=== PATIENT | female | born 1990 | race Caucasian/White ===

== ENCOUNTER 2021-02-07 19:32 | Outpatient (CLI) | payer SELFPAY ==
[~2021-02-07] VITALS: Ht 152.4 cm; Wt 78.1 kg
[2021-02-07 20:15] VITALS: BP 130/72
[2021-02-07 20:44] LABS: APPEARANCE, URINE HAZY (CLEAR); BACTERIA, URINE AUTO NEGATIVE (NEGATIVE); BILIRUBIN, URINE AUTO NEGATIVE (NEGATIVE); BLOOD, URINE BLOOD 2+ (NEGATIVE); COLOR, URINE YELLOW (YELLOW); GLUCOSE, URINE (UA) AUTO NEGATIVE (NEGATIVE); KETONE, URINE AUTO NEGATIVE (NEGATIVE); LEUKOCYTE ESTERASE, URINE AUTO NEGATIVE (NEGATIVE); MUCUS, URINE SMALL (NEGATIVE); NITRITE, URINE AUTO NEGATIVE (NEGATIVE); PROTEIN, URINE AUTO NEGATIVE (NEGATIVE); RBC, URINE AUTO TNTC /HPF (0-3); SPECIFIC GRAVITY URINE AUTO 1.014 (1.002-1.035); SQUAMOUS EPITHELIAL CELL UR AU 4 /HPF (0-6); UROBILINOGEN, URINE AUTO 0.2 mg/dL (0.0-2.0); WBC, URINE AUTO 1 /HPF (0-3)
[2021-02-07 20:45] VITALS: BP 128/69
--- NOTE | 2021-02-07 20:54 | IPNPDOC ---
Text Note Date of Service The patient was seen on 02/07/21. NOTE 31 yo at 32+4 weeks gestation presented to L&D with the complaint of several hours of severe pelvic pressure and "cervical pain." She reports the pain is 8/10 and fairly constant. She denies any urinary symptoms. She denies any vaginal bleeding, discrete contractions, or leakage of fluid. She endorses regular movement. She had intercourse yesterday. Chaperoned by L&D RN Vitals - VSS, afebrile, normotensive, non tachycardic General - AAOX3, sitting up in bed, pleasant and conversant, NAD Abdomen - Gravid uterus. No fundal tenderness Pelvic - Normal external female genitalia. Speculum inserted into the vagina and the cervix was visualized. Cervix normal in appearance and without lesions. No blood or discharge in the vaginal vault. Cervix closed. Speculum removed. Digital exam confirmed cervix cl/thick/high, posterior. FHR tracing - Cat I with +accels, no decels. No ctx on toco. Bedside TVUS: Cervical length >3.5cm with no funneling or dynamic changes. Labs: UA - unremarkable No evidence of labor or infection. Cervix closed, thick, high. Cervical length reassuring. No ctx on toco. No evidence of UTI on UA. Will follow up on UC and contact patient directly if abnormal. Discharged with return precautions. All questions answered. 40 minutes Jeremie River, I+O Jeremie PHILLIPS, I+O Vital Signs Date Time Temp Pulse Resp B/P (MAP) Pulse Ox O2 Delivery O2 Flow Rate FiO2 02/07/21 20:01 97.8 76 16 Room Air ROMELIA TARIQ DO Feb 07, 2021 20:54
[2021-02-07] MEDS ORDERED: PRENTAB9 PO (21:02)
[2021-02-07] MEDS ORDERED: ASPI81CH33 PO (21:03)
== END 2021-02-07 20:52 | disposition home or self-care (01) ==
LOC: M LDO 19:32
PROVIDERS: ATTEND Obstetrics & Gynecology
DX: O26.893 Other specified pregnancy related conditions, third trimester (principal); R10.2 Pelvic and perineal pain; Z3A.32 32 weeks gestation of pregnancy
CPT/HCPCS: 59025; 81001; 87086; G0378; G0463

== ENCOUNTER 2021-03-25 17:09 | Inpatient (IN) | payer OTHER, SELFPAY ==
[~2021-03-25] VITALS: Ht 170.2 cm; Wt 79.9 kg
[~2021-03-25 17:09] MED LIST: ASPI81CH33 PO; PRENTAB9 PO
[2021-03-25] MEDS ORDERED: VITATAB47 PO (17:32)
[2021-03-25 17:53] VITALS: BP 121/80
[2021-03-25 18:16] LABS: HEMATOCRIT 35.8 % (36.0-47.0); HEMOGLOBIN 12.3 g/dl (12.0-15.5); MEAN CORPUSCULAR HEMOGLOBIN 29.6 pg (27.0-33.0); MEAN CORPUSCULAR HGB CONC 34.4 g/dl (32.0-36.5); MEAN CORPUSCULAR VOLUME 86.1 fl (80.0-96.0); PLATELET COUNT, AUTOMATED 242 10^3/uL (150-450); RED BLOOD COUNT 4.16 10^6/uL (4.00-5.40)
[2021-03-25] MEDS ORDERED: TUMS500C PO (19:56)
[2021-03-25] MEDS ORDERED: HOME MED LIST COMPLETE! XX SCH (20:00)
[2021-03-25] MEDS ORDERED: PENICILLIN G POTASSIUM IV 5 MU in D5W MINI-BAG PLUS 100 ML IV STA (20:37)
[2021-03-25] MEDS ORDERED: METHYLERGONOVINE MALEATE 0.2 MG/ML VIAL (J2210) IM PRN (20:40)
[2021-03-25] MEDS ORDERED: OXYTOCIN INJ 10 UNITS/ML VIAL (J2590) IV PRN (20:40)
[2021-03-25] MEDS ORDERED: OXYTOCIN DRIP 30 UNITS in IV 1 EA IV SCH (20:40)
[2021-03-25] MEDS ORDERED: LR 1,000 ML IV SCH (20:40)
[2021-03-25] MEDS ORDERED: OXYTOCIN DRIP 30 UNITS in IV 1 EA IV PRN (20:40)
[2021-03-25] MEDS: LACTATED RINGER'S 1000 ML IV ONE (21:06)
--- NOTE | 2021-03-25 21:23 | HPEPDOC ---
Obstetrical History & Physical General Date of Admission Vital Signs Label Value Date Time Patient Temperature 98.2 degrees F 03/25/21 1753 Pulse 85 03/25/21 175 Respiratory Rate 16 bpm 03/25/21 175 Blood Pressure Assessment 121/80 (94) 03/25/21 175 Source Automatic Cuff (NIBP) Item Value Date Time White Blood Count 11.0 10^3/uL H 03/25/21 1755 Red Blood Count 4.16 10^6/uL 03/25/21 1755 Hemoglobin 12.3 g/dl 03/25/21 1755 Hematocrit 35.8 % L 03/25/21 1755 Mean Corpuscular Volume 86.1 fl 03/25/21 175 Mean Corpuscular Hemoglobin 29.6 pg 03/25/21 175 Mean Corpuscular Hemoglobin Concent 34.4 g/dl 03/25/21 175 Red Cell Distribution Width 12.7 % 03/25/21 175 Platelet Count 242 10^3/uL 03/25/21 1755 Mar 25, 2021 at 17:09 Primary Care Physician: Rashaad Hughes MD History of Present Illness 03/25/21 HX PRE E BOOKED FOR IOL AT 39 WEEKS Chief Complaint: Induction of labor Information Provided By: Patient Age: 30 : 2 Term: 0 Pre-term: 1 Abortions: 0 Livin Care Care: Good Care Number of Visits: 10 Dating Final EDC: Mar 31, 2021 Final EDC for Daily Update: Mar 31, 2021 Final EDC by: LMP LMP: Jun 24, 2020 1st Trimester Date: Aug 28, 2020 Weeks + Days: 9.0 Estimated Date of Confinement: Mar 31, 2021 EGA at Admission: 39.1 Antepartum Course Diagnos(e)s HISTORY PRE E BOOKED IOL AT 39.1 WEEKS Height (inches): 67 Pre- weight (lbs.): 142 Admission Weight (lbs.): 177 Change in Weight (lbs.): 35 Past Medical History Past Obstetrical History : Past Obstetrical History: Multigravida Date of Delivery: Jul 18, 2019 Gestation: 36 Type of Delivery: Spontaneous Vaginal Del. Sex of Infant: Male Weight of Infant (grams): 3288 Complications: Yes (SEVERE PRE -E ) APPEALS OFFICER History: Abnormal Pap (RETINAL DETATCHMENT) Past Medical History Medical History RETINAL DETACHMENT Surgical History: Other (LEEP CONE CERVIX, LASAR TO EYE SCLERAL BUCKLE) Family History Significant Family History: Hypertension (TYPE 2 DIABETES, PANCREATIC CANCER, PROSTATE CANCER SICK SINUS SYNDROME STROKE ) Family History MOTHER SICK SINUS SYNDROME WITH PACE MAKER, STROKE,HTN, TYPE 2 DIABETES FATHER TYPE 2 DIABETES,HTN,PROSTATE CANCER MGM PANCREATIC CANCER, HTN TYPE 2 DIABETES PGM HTN Social History Social history TO AD GOOD SUPPORT Marital Status: Family situation: Spouse/partner home Psychosocial History: No pertinent psych hx * Smoker: non-smoker Alcohol: Denies Drugs: denies Abuse Violence Screening Have you been hit/kicked/slapp: No Have you been sexually assault: No Imunizations Tdap status: current Influenza Status: current Allergies Coded Allergies: No Known Allergies (Unverified , 03/25/21) Medications Scheduled Aspirin (Aspirin) 81 Mg Tab.chew, 81 MG PO DAILY for pain B Cmplx 4/Vit D3/C/Folic/Zinc (Vital-D Rx Tablet) 1 Each Tablet, 1 TAB PO DAILY No.137/Iron/Folic Acd ( Vitamin Tablet) 1 Each Tablet, 1 TAB PO DAILY Scheduled PRN Calcium Carbonate (Tums) 200 Mg Tab.chew, 1,000 MG PO Q4-6HP PRN for HEARTBURN Physical Examination Physical Examination GENERAL: Alert and oriented times three. BREAST: . ABDOMEN: Gravid and non-tender to touch. FETUS: Is vertex (VTX) by sterile vaginal examination (SVE), fetus is vertex (VTX) by Saul. CERVIX SOFT POSTERIOR STRETCHY 2-3 BULGING MEMBRANES EFFACED 50% -3 STATION HEART RATE: Regular rate and rhythm. LUNGS: Clear to auscultation (CTA). EXTREMITIES: No edema. No clonus. Deep tendon reflexes (DTRs) + . Other physical findings NORMOCEPHALIC ATRAUMATIC NECK SUPPLE PERRLA, CHEST CLEAR TO BASES NO WHEEZE NO RHONCHI, NO SOB HEART NORMAL RHYTHM NO MURMUR NO CLICKS RUBS. ABDOMEN SOFT SF HEIGHT 39 CM 4 QUADRANT BOWEL SOUNDS. NO RASHES LESIONS PRURITUS. 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 NO URGENCY FREQUENCY Laboratory Data 24H LABS Laboratory Tests 2 03/25/21 17:55: Nucleated Red Blood Cells % (auto) 0.0, Syphilis Serology NONREACTIVE CBC/BMP Laboratory Tests 03/25/21 17:55 Pertinent Laboratoy Data Blood Type: A+ RBC Antibody Screen: Negative HIV: Negative Hepatitis B: Negative Rapid Plasma Reagin: Nonreactive Rubella: Immune Varicella: Immune Chlamydia/Gonorrhea: Negative Group B Streptococcus: Positive Quad Screen Test: Unknown Cystic Fibrosis: Negative Anatomy Ultrasound Ultrasound Date: Sep 24, 2020 Placenta Location: Anterior Normal Anatomy: Yes Placenta Previa: No Estimated Weight (grams): 344 Steroid Therapy Steroid Therapy: No Vaginal Examination Dilation: 3 cm Effacement: 50% Station: -3 Cervical Consistency: Soft Cervical Position: Posterior Presentation: Cephalic presentation Assessment Heart Rate (FHR): 144 Variability: Moderate Accelerations: Present Decelerations: None Tocometer Contractions: No Assessment/Plan Assessment 30 -year-old (G)2 para (P)1 at 39.1 weeks by 9-week ultrasound. Presents to Labor and Delivery (L&D) .FOR IOL FOR PRE E Plan Admit and orient. [employer] and consent. Diet: SATINDER Group B Streptococcus (GBS) POSITIVE Labs and intravenous (IV) per unit protocol. Counseled on Pitocin and induction of labor (IOL).COOK'S CATHETER Lactated Ringers (LR): Bolus 1000 mL, then at 125 mL/hr. Anticipate [normal spontaneous delivery ()]. C-S as appropriate. Labor and Delivery Counseling CONSENT VAGINAL DELIVERY WITH POSSIBLE USE OF FORCEPS OR VACUUM FOR MATERNAL OR REASONS WHEN DELIVERY IS NEEDED IMMEDIATELY AND OR MATERNAL DISTRESS FAILURE TO PUSH EFFECTIVELY. E[EPISIOTOMY MAY BE REQUIRED TO ACHIEVE DELIVERY AND REPAIR MAY BE NEEDED FOR LACERATIONS TEARS TO PELVIC ORGANS . EMERGENCY MY BE REQUIRED FOR OR MATERNAL REASONS WHEN IMMANENT DELIVERY IS NEEDED. RISKS INCLUDE HEMORRHAGE INFECTION PERFORATION REOPERATION REMOTE BLOOD TRANSFUSION REMOTE HYSTERECTOMY FOR LIFE THREATENING BLEEDING.POSSIBLE ADMISSION TO NICU . PATIENT MAY HAVE RESIDUAL DULCE FECAL INCONTINENCE UTERINE RUPTURE , EXPRESSED UNDERSTANDING. PLAN IS TO START ANTIBIOTICS CH"S CATHETER AUGMENT WITH PITOCIN AND EPIDURAL NEEDED PASSIVE DESCENT AND MINIMAL PUSHING DUE TO RETINA Rashaad Hughes MD Mar 25, 2021 21:20
[2021-03-25 21:51] VITALS: BP 129/76
[2021-03-25 22:08] VITALS: BP 123/84
[2021-03-25 22:38] VITALS: BP 101/59
[2021-03-25 23:00] VITALS: BP 110/61
[2021-03-25 23:30] VITALS: BP 108/58
[2021-03-26] VITALS (26 sets, daily range): BP systolic 96–130; BP diastolic 50–83
[2021-03-26] MEDS ORDERED: FENTANYL 2MCG/ML ROPIVACAINE 0.2% IN 0.9% NACL 100ML IVBAG As Ordered ONE (00:20)
[2021-03-26] MEDS: LACTATED RINGER'S 1000 ML IV ONE (00:36)
[2021-03-26] MEDS: FENTANYL/ROPIVACAINE/NACL BAG 100 ML EPIDURAL SCH ×2 (00:50→17:27)
[2021-03-26] MEDS ORDERED: PENICILLIN G POTASSIUM IV 2.5 MU in IV 1 EA IV SCH (01:06)
[2021-03-26 04:19] LABS: CORD GAS ABE A -3.5; CORD GAS HCO3 A 22.9 MEQ/L; CORD GAS HCO3 V 19.8 MEQ/L; CORD GAS O2 SAT A 69.4 %; CORD GAS O2 SAT V 70.1 %; CORD GAS PCO2 A 46.1 mmHg; CORD GAS PCO2 V 39.9 mmHg; CORD GAS PH A 7.314 UNITS; CORD GAS PH V 7.313 UNITS; CORD GAS PO2 A 28.2 mmHg; CORD GAS PO2 V 29.7 mmHg; CORD GAS TCO2 A 24.3 MEQ/L
[2021-03-26] MEDS ORDERED: DIBUCAINE 1% OINTMENT 30GM TOP PRN (04:25)
[2021-03-26] MEDS ORDERED: OXYTOCIN DRIP 30 UNITS in IV 1 EA IV SCH (04:25)
[2021-03-26] MEDS ORDERED: ACETAMINOPHEN TAB 650MG DOSE (2X325MG) PO PRN (04:25)
[2021-03-26] MEDS ORDERED: MOM 30ML SUSPENSION UDC PO PRN (04:25)
[2021-03-26] MEDS ORDERED: RHOGAM 300 MCG (1500 IU) INJ (J2790) IM SCH (04:25)
[2021-03-26] MEDS ORDERED: MEASLES,MUMPS,RUBELLA VACCINE INJ (MMR-II) (90707) SC SCH (04:25)
[2021-03-26] MEDS ORDERED: OXYTOCIN INJ 10 UNITS/ML VIAL (J2590) IV ONE (04:25)
[2021-03-26] MEDS ORDERED: METHYLERGONOVINE MALEATE 0.2 MG TAB PO PRN (04:25)
[2021-03-26] MEDS ORDERED: OXYTOCIN DRIP 30 UNITS in IV 1 EA IV ONE (04:25)
[2021-03-26] MEDS ORDERED: METHYLERGONOVINE MALEATE 0.2 MG/ML VIAL (J2210) IM ONE (04:25)
[2021-03-26] MEDS ORDERED: ANUSOL HC CREAM 30GM TOP PRN (04:25)
[2021-03-26] MEDS ORDERED: diphenhydrAMINE 50MG/ML VIAL (J1200) IV PRN (06:05)
[2021-03-26] MEDS ORDERED: ePHEDrine SULFATE 25 MG/5 ML(5MG/ML) SYRINGE IV PRN (06:05)
[2021-03-26] MEDS ORDERED: REFRIGERATOR IV KEYS XX PRN (06:05)
[2021-03-26] MEDS ORDERED: EPIDURAL COMMENT XX SCH (06:05)
[2021-03-26] MEDS ORDERED: EPIDURAL/PCA KEYS XX PRN (06:05)
[2021-03-26] MEDS ORDERED: ONDANSETRON 4MG/2ML VIAL IV PRN (06:05)
[2021-03-26] MEDS ORDERED: NALOXONE INJ 0.4MG/1ML VIAL (J2310 PER 1MG) IV PRN (06:05)
[2021-03-26] MEDS ORDERED: LACTATED RINGER'S 1000 ML IV PRN (06:05)
[2021-03-26] MEDS: LR 1,000 ML IV SCH ×2 (06:55→12:25)
--- NOTE | 2021-03-26 07:35 | DN ---
DELIVERY NOTE DATE OF DELIVERY: 03/26/2021 TIME OF : GENDER: APGARS: LACERATIONS: DESCRIPTION OF DELIVERY: This patient is a 31-year-old 2 para 1 admitted for induction of labor at 39 plus weeks of gestation with a history of preeclampsia (pre-E). she had an epidural in place, had a spontaneous vaginal delivery with brow anterior live- male ; 8 pounds 11 ounces (3950 grams); Apgars of 9 and 9 at one and five minutes respectively. Cord around the neck times one. Arterial pH 7.31, base excess -3.5. Venous PH 7.31, base excess -6.0. Placenta delivered spontaneously thereafter; three-vessel cord; membranes and tissues intact. Anterior, posterior and lateral bang complete, quite a bit of bruising in the fourchette area and the lateral wall. Sphincter was tight. Uterus was a bit boggy; required increased Pitocin and Methergine and massage because of prolonged pushing; however, the uterus did come down and contract appropriately. The estimated blood loss was 200 mL. The patient and baby tolerated the procedure well. [facility]
[2021-03-26] MEDS: DOCUSATE SODIUM 100MG CAPSULE PO PRN (08:02)
[2021-03-26] MEDS: PRENATAL VITAMINS CHEWABLE TABLET PO SCH (08:02)
[2021-03-26] MEDS: IBUPROFEN 600MG TAB PO PRN ×3 (08:02→21:30)
[2021-03-26] MEDS ORDERED: SERTRALINE HCL 50 MG TAB PO SCH (09:00)
[2021-03-26] MEDS: ACETAMINOPHEN 500 MG TAB PO PRN ×2 (11:48→19:32)
[2021-03-26] MEDS: MIRALAX *UNIT DOSE* 17GM PACKET PO PRN (21:30)
[2021-03-26] MEDS: SERTRALINE HCL 50 MG TAB PO SCH (21:30)
[2021-03-27] MEDS: ACETAMINOPHEN 500 MG TAB PO PRN ×3 (02:44→22:27)
[2021-03-27] MEDS: FENTANYL/ROPIVACAINE/NACL BAG 100 ML EPIDURAL SCH (04:49)
[2021-03-27] MEDS: IBUPROFEN 600MG TAB PO PRN ×3 (05:16→22:25)
--- NOTE | 2021-03-27 05:25 | IPNPDOC ---
Progress Note Date of Service: Mar 27, 2021 Progress Note 31 yo G2 now P2 PPD#1 s/p uncomplicated yesterday in the education technician hours after being admitted for an IOL. No acute events overnight. This morning Lizbet overally reports feeling well. She does endorse rectal pressure and bruising and desires an exam in this location. She is ambulating, voiding without difficulty, and tolerating a regular diet. Lochia has been minimal. She is Chaperoned by Maternity nursing staff Vitals - VSS, afebrile, normotensive, non tachycardic General - AAOX3, laying in bed, pleasant and conversant, NAD Abdomen - Soft, nondistended. Fundus firm at U-2. No fundal tenderness. Perineum/rectum - bruising noted around anus and perineum. No hematoma. No signs of infection or skin breakdown Extremities - trace edema UO - appropriate Lizbet is doing well and is making an appropriate recovery. Perineal / anal bruising noted but not hematoma or skin breakdown. Continue to monitor. Continue routine care. Anticipate DC home tomorrow. All questions answered. Jovani VS, I&O, 24H, Jeremie Vital Signs/I&O Vital Signs Date Time Temp Pulse Resp B/P (MAP) Pulse Ox O2 Delivery O2 Flow Rate FiO2 03/26/21 18:00 97.2 69 18 111/67 (82) Room Air I&O- Last 24 Hours up to 6 AM 03/27/21 06:00 Intake Total 1527.5 ml Output Total 400 ml Balance 1127.5 ml Laboratory Data 24H LABS Laboratory Tests 2 03/26/21 06:50: Serology Scanned Report Hepatitis B Testing ROMELIA TARIQ DO Mar 27, 2021 05:25
[2021-03-27 06:05] VITALS: BP 130/77
[2021-03-27] MEDS: DOCUSATE SODIUM 100MG CAPSULE PO PRN ×2 (08:41→21:30)
[2021-03-27] MEDS: PRENATAL VITAMINS CHEWABLE TABLET PO SCH (08:41)
[2021-03-27 18:00] VITALS: BP 112/56
[2021-03-27] MEDS: SERTRALINE HCL 50 MG TAB PO SCH (21:29)
[2021-03-27] MEDS: MIRALAX *UNIT DOSE* 17GM PACKET PO PRN (22:28)
[2021-03-28] MEDS ORDERED: SERT50TA29 PO (04:57)
[2021-03-28] MEDS ORDERED: ACET1TAB55 PO (04:57)
[2021-03-28] MEDS ORDERED: COLA100C5 PO (04:57)
[2021-03-28] MEDS ORDERED: IBUP-1022 PO (04:57)
--- NOTE | 2021-03-28 05:12 | OBDS ---
[facility] Obstetrical Discharge Sum. Obstetrical Discharge Summary Barrel Plater/Provider: YOBANY CHAMBERS DO Date: Mar 28, 2021 Time: 04:49 : 2 Term: 2 Pre-term: 0 Abortions: 0 Livin VDRL: Non-Reactive Rh: Positive Rubella: Immune Labor uncomplicated induction of labor Delivery normal spontaneous vaginal delivery Sex: Male Weight: pounds (8), ounces (11) Anesthesia: Regional Anesthesia A/P, Post Course List any complications Admission diagnosis: term gestation. Discharge diagnosis: status post normal spontaneous vaginal delivery Condition at Discharge: Good Discharge Instructions: Home Activity: vaginal rest Diet: resume prehospital Medications: picked up Follow-up: 6 weeks [facility] Other: Day of discharge exam: nad, a&o x3 cv regular rate nonlabored breathing abd soft nontender, nondistended uterus firm at u-2 negative calf tenderness bilaterally YOBANY CHAMBERS DO Mar 28, 2021 04:51
[2021-03-28 05:50] VITALS: BP 119/73
[2021-03-28 07:45] VITALS: BP 119/73
[2021-03-28] MEDS: PRENATAL VITAMINS CHEWABLE TABLET PO SCH (08:59)
[2021-03-28] MEDS: DOCUSATE SODIUM 100MG CAPSULE PO PRN (08:59)
[2021-03-28] MEDS: ACETAMINOPHEN 500 MG TAB PO PRN (08:59)
--- NOTE | 2021-03-29 12:14 | IPN ---
PROGRESS NOTE DATE: 03/26/2021 SUBJECTIVE: This patient requested circumcision of her male infant. After discussing the risks and benefits of circumcision, the medical, the non-medical indications, the penile block and aftercare, expressed understanding of penile block, aftercare and bleeding, signed the consent form. All questions were answered. Twenty minute discussion. We await clearance by the unit nurse.
== END 2021-03-28 12:35 | disposition home or self-care (01) | DRG 807 ==
LOC: M LDI 17:09 → M OBS 03-26 06:30
PROVIDERS: ADMIT Obstetrics & Gynecology; ATTEND Obstetrics & Gynecology
PROC: 3E033VJ Introduction of Other Hormone into Peripheral Vein, Percutaneous Approach (ICD-10-PCS; 2021-03-25)
PROC: 10E0XZZ Delivery of Products of Conception, External Approach (ICD-10-PCS; principal; 2021-03-26)
DX: O14.94 Unspecified pre-eclampsia, complicating childbirth (principal); Z37.0 Single live birth; Z3A.39 39 weeks gestation of pregnancy; O99.820 Streptococcus B carrier state complicating pregnancy; O69.82X0 Labor and delivery complicated by other cord entanglement, without compression, not applicable or unspecified